=== PATIENT | female | born 1995 | race Caucasian/White ===

== ENCOUNTER 2017-02-16 11:24 | Emergency (ER) | payer SELFPAY ==
--- NOTE | 2017-02-17 01:05 | ER ---
DATE SEEN: 02/16/2017 TIME SEEN: 1130 hours. REASON FOR VISIT: Pain thumb. HISTORY OF PRESENT ILLNESS: This is a 21-year-old female with pain in the left thumb since Thursday. [id number] pain. No swelling. Nothing seems to improve it. She has worn a brace with no improvement. ALLERGIES: No known allergies. PAST MEDICAL HISTORY: No active medical problems. PHYSICAL EXAMINATION: GENERAL: Pleasant. VITAL SIGNS: Blood pressure is normal, pulse is 85, and temp 97.8. EXTREMITIES: Left wrist, no obvious swelling. There is tenderness in the radial styloid process and Nicole's test is positive. IMPRESSION: De Quervain's tenosynovitis. PLAN: Thumb spica splint, ibuprofen, and rest. Follow up in 1 week. /[id number] HELIO/BLANCA
--- NOTE | 2017-03-03 23:31 | ER ---
DATE SEEN: 02/16/2017 ADDENDUM: Please note that the splint that was placed was pre-made and prefabricated. /[id number] HELIO/BLANCA
== END 2017-02-16 11:40 | disposition home or self-care (01) ==
LOC: FB.ED 11:24
DX: M65.4 Radial styloid tenosynovitis [de Quervain] (principal)
CPT/HCPCS: 99283